=== PATIENT | female | born 1990 ===

== ENCOUNTER 2017-06-24 09:36 | Inpatient (IN) ==
[2017-06-24] MEDS ORDERED: BUTORPHANOL 2 MG/ML VIAL IV PRN (10:10)
[2017-06-24] MEDS ORDERED: ONDANSETRON 4 MG/2 ML VIAL IV PRN (10:10)
[2017-06-24] MEDS ORDERED: MEPERIDINE 50 MG/1 ML VIAL IV PRN (10:10)
--- NOTE | 2017-06-24 10:26 | Ultrasound Report ---
Limited OB ultrasound. Indication: Evaluate presentation. There is a single intrauterine gestation in a cephalic presentation. The placenta is located fundal without evidence of placenta previa. The heart rate is 137 bpm. Impression: Viable fetus in a cephalic presentation. The Ultrasound images were captured and stored. PROCEDURE INTERPRETED AT [facility] DEPARTMENT OF RADIOLOGY Final Report Signed by: Dr. Leah Talavera
[2017-06-24] MEDS ORDERED: OXYTOCIN/LR 20 UNIT/1,000 ML BAG IV SCH (10:30)
[2017-06-24] MEDS ORDERED: hydrOXYzine HCL 25 MG/1 ML VIAL IM PRN (10:43)
[2017-06-24] MEDS ORDERED: CITRIC ACID/SODIUM CITRATE 30 ML UDCUP PO ONE (10:43)
[2017-06-24] MEDS ORDERED: ePHEDrine 50 MG/ML AMP IV PRN (10:43)
[2017-06-24] MEDS ORDERED: diphenhydrAMINE 50 MG/1 ML VIAL IV PRN ×2 (10:43)
[2017-06-24] MEDS ORDERED: fentaNYL 2 MCG/ROPIV 0.2% EPID 150 ML EPIDURAL SCH (10:43)
[2017-06-24] MEDS ORDERED: FAMOTIDINE 20 MG/2 ML VIAL IV ONE (10:43)
[2017-06-24] MEDS ORDERED: LACTATED RINGERS 1,000 ML IV ONE (10:43)
[2017-06-24] MEDS ORDERED: LACTATED RINGERS 500 ML IV ONE (10:43)
[2017-06-24] MEDS ORDERED: PROMETHAZINE 25 MG/1 ML VIAL IM ONE (10:43)
[2017-06-24 10:45] LABS: Basophils % 0.3 % (0.0-0.8); Eosinophils # 0.1 10*3/uL (0.0-0.87); Eosinophils % 1.1 % (0.00-10.9); Hemoglobin 10.7 GM/DL (12.0-16.0); Immature Granulocytes % 0.3 %; Immature Granulocytes Absolute 0.02 #; Lymphocytes # 1.6 10*3/uL (1.4-4.0); Lymphocytes % 25.1 % (21.3-54.2); Mean Corpuscular HGB Conc 31.5 GM/DL (32-36); Mean Corpuscular Hemoglobin 25 PG (27-34); Mean Corpuscular Volume 80.6 FL (87-102); Mean Platelet Volume 10.5 FL (9.6-12.0); Monocytes # 0.5 10*3/uL (0.11-0.8); Monocytes % 7.4 % (1.7-12.7); Neutrophils # 4.2 10*3/uL (1.4-7.4); Neutrophils % 65.8 % (38.7-73.9); Platelet Count 247 T/CUMM (130-400); Red Blood Count 4.22 MC/CUMM (3.8-5.5); White Blood Count 6.3 T/CUMM (4-12)
[2017-06-24] MEDS: LACTATED RINGERS 1,000 ML IV SCH ×2 (11:03→13:28)
[2017-06-24 11:10] LABS: Hypochromasia 1+; Microcytosis 1+; Platelet Estimate Adequate
[2017-06-24 11:13] LABS: Albumin 2.6 G/DL (3.4-5.0); Bilirubin,Total 0.6 MG/DL (0.2-1.0); Calcium 8.7 MG/DL (8.5-10.1); Osmolality,Calculated 275.4 MOS/KG (273-304); Total Protein 6.4 G/DL (6.4-8.3)
[2017-06-24 13:03] LABS: Apearance,Urine CLEAR (Clear); Bilirubin,Urine Negative (Negative); Blood, Urine Negative (Negative); Glucose,Urine (UA) Negative (Negative); Ketones,Urine 20 mg/dL (Negative); Nitrite,Urine Negative (Negative); Protein,Urine Negative; Squamous Epithelial Cell,Urine Occasional /HPF (0-10); Urine Color Straw (Yellow); Urine Specific Gravity 1.004 (1.001-1.035); Urine Urobilinogen < 2.0 EU/DL (0.2-1.0); WBC,Urine <1 /HPF (0-6)
[2017-06-24] MEDS ORDERED: LIDOCAINE 1% 50 ML VIAL ONE (16:34)
[2017-06-24] MEDS ORDERED: miSOPROStol 200 MCG TABLET ONE (16:34)
[2017-06-24] MEDS ORDERED: METHYLERGONOVINE 0.2 MG/1 ML AMP ONE (16:35)
--- NOTE | 2017-06-24 18:27 | OB/GYN History & Physical ---
History of Present Illness Chief complaint: In for elective induction of labor due to term . History of present illness: Ms. Lynn is a 27 year old female who is a 8 para 7 living 7. Her DANTE is 07/01/2017 estimated gestational age of 39 weeks and 1 day. The patient presents for elective induction of labor due to term . The risk and benefits has been thoroughly discussed with this patient and significant other, plan of care has been discussed with Dr. Vila and all parties are in agreement with plan. The patient received her care at the [facility] in the [place] [facility]. She received routine care, her course was uneventful. The patient has had 7 previous vaginal deliveries and the largest weighed 8 pounds and 7 ounces, she reported no complications with any of her pregnancies. labs she is O+, RPR is nonreactive, rubella is immune, hepatitis B negative, HIV negative, GBS culture is negative, review of systems negative. Home Medications Medication Instructions Recorded Confirmed Type Ferrous Sulfate Tab [Feosol 1 tablet PO DAILY 06/24/17 06/24/17 History Original Tab] Multivitamin () [ 1 tablet PO DAILY 06/24/17 06/24/17 History Vitamin] Allergies Allergy/AdvReac Type Severity Reaction Status Date / Time No Known Allergies Allergy Verified 06/05/15 15:28 12 point system: reviewed and no additional remarkable complaints except as stated Medical,Surgical,& Family Hx - Medical History Cardio: History of: Hypertension (HX DURING PREG DR TOOK OFF) HEENT: History of: Eye Problem (CONTACTS) Reproductive: History of: Abnormal Pap Smear No history of: Ectopic , Complication - Surgical History Neurologic Surgeries: Patient denies: Neurologic Surgery Reproductive Surgeries: Patient denies;: Section, Gynecologic Surgery, Tubal Ligation Orthopedic Surgeries: Surgical HX of;: Orthopedic Surgery (Left elbow surgery) - Family History Family History: Reports;: Family Diabetes, Family Heart Disease, Family Hypertension Denies;: Family Anesthesia Reaction, Family Cancer, Family Psychiatric Problems, Family Stroke - Social History Smoking Status: Never smoker Frequency of Alcohol Use: None Type of Drug Use: None Marital Status: Single Lives With:: Significant Other Functional capacity: independent ambulation Exam [employer] - Constitutional Vitals: Vital Signs Temp Pulse Resp BP Pulse Ox 06/24/17 16:00 97.9 F 89 18 104/55 100 08/22/17 14:00 97.6 F 06/24/17 12:00 98.0 F 78 18 126/66 100 06/24/17 10:30 97.4 F L 75 18 120/75 100 General appearance: no acute distress - Antepartum / Post Antepartum Exam Cervix - Dilatation: 5 cm upon admission Effacement: 60% effaced Station: -2 Rupture: Intact Presentation: Vertex Heart Rate: 140s Breast: bilateral: normal Abdomen obstetrics: Present: bowel sounds normal Vagina: Present: normal moisture, discharge Uterus exam: Present: enlarged Anus/Rectum: Present: normal perianal skin - Respiratory Respiratory exam: Present: clear to auscultation bilaterally - Cardiovascular Cardiovascular exam: Present: regular rate and rhythm - GI/Abdominal GI/Abdominal exam: Present: normal bowel sounds, soft - Extremities Exam Extremities exam: Present: normal inspection - Neurological Exam Neurological exam: Present: alert, oriented X3 - Psychiatric Psychiatric exam: Present: normal affect, normal mood - Skin Skin exam: Present: normal color, warm Assessment and Plan (1) with 39 completed weeks gestation Status: Acute Assessment and plan: Admit IV fluids IV Pitocin per protocol Artificial rupture membranes when appropriate Internal monitors if indicated Epidural anesthesia if desired Anticipate Current Visit: Yes (2) Grand multipara Status: Acute Assessment and plan: Same as above Current Visit: Yes Results - Labs CBC & BMP: 06/24/17 10:25 06/24/17 10:25
--- NOTE | 2017-06-24 18:32 | Event Note ---
HPI: Ms. Lynn is a 27-year-old female who presented to the labor department for elective induction of labor due to term . The risk and benefits were thoroughly discussed with this patient in Dr. Vila, all parties were in agreement plan. Stage I: The patient was admitted and received IV fluids. She also received artificial rupture membranes with clear fluid noted. The patient progressed in labor with a CAT 1 tracing. She received an epidural for pain control. She had an uneventful course of labor without incident. Stage II: The patient was complete and was instructed to push. She pushed for approximately 5 minutes after which time the infant's head was delivered. The mouth and nose were suctioned on the perineum. The remainder the infant was delivered at 1748, a viable male infant was noted. Apgars were 8 at 1 minute and 9 at 5 minutes. weight was 7 pounds and 7 ounces. A cord pH was obtained and sent to the lab. Stage III: A spontaneous delivery of a [place] placenta with a three-vessel cord noted. The placenta was further examined appeared to be grossly intact. The vagina cervix was inspected with no tears or lacerations noted. Estimated blood loss is proximal 150 cc. At the time of dictation mother and baby are both in stable condition.
[2017-06-24] MEDS ORDERED: ACETAMINOPHEN/CODEINE 300-30 MG TABLET PO PRN (18:37)
[2017-06-24 18:58] LABS: Cord Arterial Blood HCO3 25.9 MMOL/L
[2017-06-24 19:00] LABS: Cord Venous Blood HCO3 23.2 MMOL/L; Cord Venous Blood PO2 41.2
[2017-06-24] MEDS ORDERED: MEASLES/MUMPS/RUBELLA VACCINE 0.5 ML VIAL SUBCUT ONE (20:15)
[2017-06-24] MEDS ORDERED: BENZOCAINE 20%/MENTHOL 0.5% SPRAY 56 GM CAN TOP PRN (20:15)
[2017-06-24] MEDS ORDERED: ACETAMINOPHEN 325 MG TABLET PO PRN (20:15)
[2017-06-24] MEDS ORDERED: DIPH/TET/ACEL PERT BOOSTER VACCINE 0.5 ML VIAL IM ONE (20:15)
[2017-06-24] MEDS ORDERED: BISACODYL 10 MG SUPP RECTAL PRN (20:15)
[2017-06-24] MEDS ORDERED: WITCH HAZEL PADS 100/JAR TOP PRN (20:15)
[2017-06-24] MEDS ORDERED: HYDROCORTISONE 2.5% RECTAL CREAM 30 GM TUBE TOP PRN (20:15)
[2017-06-24] MEDS ORDERED: RHO(D) IMMUNE GLOBULIN 300 MCG SYRINGE IM ONE (20:15)
[2017-06-24] MEDS ORDERED: oxyCODONE/ACETAMINOPHEN 5-325 MG TABLET PO PRN ×2 (20:15)
[2017-06-24] MEDS ORDERED: LANOLIN 50% CREAM 0.3 OZ TUBE TOP PRN (20:15)
[2017-06-24] MEDS: DOCUSATE SODIUM 100 MG CAPSULE PO SCH (21:20)
[2017-06-25] MEDS: IBUPROFEN 800 MG TABLET PO PRN ×3 (01:19→22:23)
[2017-06-25 06:47] LABS: Basophils % 0.2 % (0.0-0.8); Eosinophils # 0.1 10*3/uL (0.0-0.87); Eosinophils % 1.3 % (0.00-10.9); Hematocrit 31.5 VOL% (35.7-47.0); Immature Granulocytes % 0.4 %; Immature Granulocytes Absolute 0.04 #; Lymphocytes # 2.1 10*3/uL (1.4-4.0); Mean Corpuscular HGB Conc 31.7 GM/DL (32-36); Mean Corpuscular Hemoglobin 26 PG (27-34); Mean Platelet Volume 10.9 FL (9.6-12.0); Monocytes # 0.6 10*3/uL (0.11-0.8); Monocytes % 6.6 % (1.7-12.7); Neutrophils # 6.2 10*3/uL (1.4-7.4); Neutrophils % 68.5 % (38.7-73.9); Platelet Count 234 T/CUMM (130-400); Red Blood Count 3.89 MC/CUMM (3.8-5.5)
[2017-06-25 07:18] LABS: Hypochromasia 1+
[2017-06-25 07:19] LABS: Microcytosis 1+; Ovalocytes Slight; Platelet Estimate Normal
[2017-06-25] MEDS: DOCUSATE SODIUM 100 MG CAPSULE PO SCH ×2 (08:21→20:45)
--- NOTE | 2017-06-25 10:04 | Progress Note ---
Family Medicine PN Sub Interval history: day #1 Status post vaginal Lungs are clear ,cardiac exam benign, uterus is nice and firm and nontender. Extremities well with no limits and neurologic grossly intact Assessment and plan Possible discharge in a.m. we will continue with present therapy increase ambulation as well. Exam (Progress Note) - Constitutional Vitals: Period Temp Pulse Resp BP Sys/[place] Pulse Ox Last 24 Hr 97.4 F-98.7 F 69-89 18-20 104-127/50-75 99-100 Results - Labs CBC & BMP: 06/25/17 06:05 06/24/17 10:25 Quality Measures - VTE Contraindication to Pharmacological VTE Prophylaxis: Clinical assessment deems Pt at low risk, no prophalaxis needed
[2017-06-26 07:44] VITALS: BP 113/68
[2017-06-26] MEDS: DOCUSATE SODIUM 100 MG CAPSULE PO SCH (08:37)
--- NOTE | 2017-06-26 09:20 | Discharge Summary ---
Hospital Course - Hospital Course Hospital Course: Ms. Lynn presented to the labor department for elective induction of labor due to term . She subsequently delivered a viable with no complications. She has followed a normal course and she has done well. Her bleeding is minimal with no odor. She is voiding without difficulty. Her vital signs stable as well as her lab. Her perineum is intact with no edema. Contraception options has been discussed with this patient and she will decide on a method at her visit. She will be discharged home with prescriptions for pain and a follow-up appointment in our office. Diagnosis - Discharge Diagnosis (1) with 39 completed weeks gestation Status: Acute (2) Grand multipara Status: Acute Specialty Discharge - Follow Up or Referrals Follow up with: Kristin Vila MD [Physician] - (Follow-up in 6 weeks.) Discharge Plan - Discharge Data Disposition: Disch To Home/Self Care Condition at Discharge: Stable Discharge Diet: advance to your usual diet, regular diet Activity: resume usual activities as tolerated Hygiene: no restrictions Weight Bearing at Discharge: weight bear as tolerated Driving: no restrictions Contact your physician if you experience:: fever over 101, pain uncontrolled by pain medications - Discharge Medications New Acetamin/Codeine 300-30 Tab [Tylenol/Codeine #3] 2 tablet PO Q4H PRN #30 tablet PRN Reason: Pain Mild (1-3) Ibuprofen Tab [Motrin Tab] 800 mg PO Q6H PRN #30 tablet PRN Reason: Pain Moderate (4-7) No Action Multivitamin () [ Vitamin] 1 tablet PO DAILY Ferrous Sulfate Tab [Feosol Original Tab] 1 tablet PO DAILY - Follow Up or Referral - Forms/Instructions Exam - Constitutional Vitals: Period Temp Pulse Resp BP Sys/[place] Pulse Ox Last 24 Hr 97 F-98.3 F 66-98 18-20 105-124/56-74 98-99 General appearance: no acute distress - Respiratory Respiratory exam: Present: clear to auscultation bilaterally - Cardiovascular Cardiovascular exam: Present: regular rate and rhythm - GI/Abdominal GI/Abdominal exam: Present: normal bowel sounds, soft - Extremities Exam Extremities exam: Present: normal inspection - Back Exam Back exam: Present: normal inspection - Neurological Exam Neurological exam: Present: alert, oriented X3 - Psychiatric Psychiatric exam: Present: normal affect, normal mood - Skin Skin exam: Present: normal color, warm Discharge Results Procedures and tests throughout hospitalization: Pending Orders 06/24/17 12:40 Urinalysis Stat DS: Provider Date of admission: 06/24/17 10:11 Primary care physician: Norberto Gallego MD Attending physician on admission: Kristin Vila MD Consults: 06/24/17 10:11 Consult to Anesthesiology [CONS] Routine Consulting Provider: Reason for Anesthesiology: Epidural Consult Comment: Epidural for pain managment 06/24/17 20:15 Consult to Denial Management Representative [CONS] Routine Consult Denial Management Representative: Breast Feeding Discharging clinician: Maria Dolores Melchor CNM Expected date of discharge: 06/26/17
== END 2017-06-26 13:00 | disposition home or self-care (01) | DRG 560 ==
LOC: N.LDOUT 09:36 → N.LD 09:39 → N.OB 20:00
PROVIDERS: ADMIT Obstetrics & Gynecology; ATTEND Obstetrics & Gynecology

== ENCOUNTER 2018-07-09 09:04 | Inpatient (IN) ==
[2018-07-09] MEDS ORDERED: OXYTOCIN/LR 20 UNIT/1,000 ML BAG IV ONE ×2 (09:30→09:38)
[2018-07-09] MEDS ORDERED: miSOPROStol 200 MCG TABLET ONE (09:30)
[2018-07-09] MEDS ORDERED: LIDOCAINE 1% 50 ML VIAL ONE (09:30)
[2018-07-09] MEDS ORDERED: ONDANSETRON 4 MG/2 ML VIAL IV PRN (09:32)
[2018-07-09] MEDS ORDERED: AMPICILLIN INJ 2,000 MG in SODIUM CHLORIDE 0.9% 100 ML IV ONE (09:38)
[2018-07-09] MEDS ORDERED: AMPICILLIN 2,000 MG VIAL ONE (09:40)
[2018-07-09] MEDS ORDERED: SODIUM CHLORIDE 0.9% 100 ML IV ONE (09:40)
[2018-07-09] MEDS ORDERED: BUTORPHANOL 2 MG/ML VIAL ONE (09:45)
[2018-07-09] MEDS ORDERED: BUTORPHANOL 2 MG/ML VIAL IV ONE (09:49)
[2018-07-09] MEDS ORDERED: ONDANSETRON 4 MG/2 ML VIAL IM ONE (09:49)
[2018-07-09 09:58] LABS: Basophils % 0.4 % (0.0-0.8); Eosinophils # 0.1 10*3/uL (0.0-0.87); Eosinophils % 0.8 % (0.00-10.9); Hematocrit 30.4 VOL% (35.7-47.0); Hemoglobin 9.4 GM/DL (12.0-16.0); Immature Granulocytes % 0.6 %; Immature Granulocytes Absolute 0.06 #; Lymphocytes # 2.9 10*3/uL (1.4-4.0); Lymphocytes % 27.8 % (21.3-54.2); Mean Corpuscular HGB Conc 30.9 GM/DL (32-36); Mean Corpuscular Hemoglobin 24 PG (27-34); Monocytes # 0.5 10*3/uL (0.11-0.8); Monocytes % 5.1 % (1.7-12.7); Neutrophils # 6.7 10*3/uL (1.4-7.4); Neutrophils % 65.3 % (38.7-73.9); Platelet Count 254 T/CUMM (130-400); Red Blood Count 3.95 MC/CUMM (3.8-5.5); Red Cell Distribution Width 16.8 % (9.3-17.3); White Blood Count 10.3 T/CUMM (4-12)
[2018-07-09] MEDS ORDERED: LACTATED RINGERS 1,000 ML IV SCH (10:00)
[2018-07-09] MEDS ORDERED: OXYTOCIN/LR 20 UNIT/1,000 ML BAG IV SCH (10:00)
[2018-07-09 10:40] LABS: Albumin 2.4 G/DL (3.4-5.0); Bilirubin,Total 0.7 MG/DL (0.2-1.0); Calcium 8.6 MG/DL (8.5-10.1); Osmolality,Calculated 275.4 MOS/KG (273-304); Potassium 3.6 MMOL/L (3.5-5.1); Total Protein 7.3 G/DL (6.4-8.3)
[2018-07-09 11:08] LABS: Apearance,Urine CLEAR (Clear); Bacteria,Urine Occasional /HPF (Few); Bilirubin,Urine Negative (Negative); Blood, Urine Small mg/dL (Negative); Glucose,Urine (UA) Negative (Negative); Ketones,Urine Negative (Negative); Mucus,Urine Occasional /LPF (Occasional); Nitrite,Urine Negative (Negative); Protein,Urine Negative; RBC,Urine 16 /HPF (0-4); Squamous Epithelial Cell,Urine Occasional /HPF (0-10); Urine Color Yellow (Yellow); Urine Specific Gravity 1.012 (1.001-1.035); WBC,Urine <1 /HPF (0-6)
[2018-07-09] MEDS ORDERED: MEASLES/MUMPS/RUBELLA VACCINE 0.5 ML VIAL SUBCUT ONE (15:46)
[2018-07-09] MEDS ORDERED: BENZOCAINE 20%/MENTHOL 0.5% SPRAY 56 GM CAN TOP PRN (15:46)
[2018-07-09] MEDS ORDERED: oxyCODONE/ACETAMINOPHEN 5-325 MG TABLET PO PRN (15:46)
[2018-07-09] MEDS ORDERED: RHO(D) IMMUNE GLOBULIN 300 MCG SYRINGE IM ONE (15:46)
[2018-07-09] MEDS ORDERED: ACETAMINOPHEN 325 MG TABLET PO PRN (15:46)
[2018-07-09] MEDS ORDERED: DIPH/TET/ACEL PERT BOOSTER VACCINE 0.5 ML VIAL IM ONE (15:46)
[2018-07-09] MEDS ORDERED: HYDROCORTISONE 2.5% RECTAL CREAM 30 GM TUBE TOP PRN (15:46)
[2018-07-09] MEDS ORDERED: WITCH HAZEL PADS 100/JAR TOP PRN (15:46)
[2018-07-09] MEDS ORDERED: BISACODYL 10 MG SUPP RECTAL PRN (15:46)
[2018-07-09] MEDS ORDERED: LANOLIN 50% CREAM 0.3 OZ TUBE TOP PRN (15:46)
[2018-07-09] MEDS ORDERED: ACETAMINOPHEN/CODEINE 300-30 MG TABLET PO PRN (15:46)
[2018-07-09] MEDS: IBUPROFEN 800 MG TABLET PO PRN (16:40)
[2018-07-09] MEDS: DOCUSATE SODIUM 100 MG CAPSULE PO SCH (20:42)
[2018-07-10 06:02] LABS: Basophils % 0.3 % (0.0-0.8); Eosinophils # 0.1 10*3/uL (0.0-0.87); Eosinophils % 1.8 % (0.00-10.9); Hematocrit 26.6 VOL% (35.7-47.0); Immature Granulocytes % 0.5 %; Immature Granulocytes Absolute 0.04 #; Lymphocytes # 2.4 10*3/uL (1.4-4.0); Lymphocytes % 30.7 % (21.3-54.2); Mean Corpuscular HGB Conc 30.1 GM/DL (32-36); Mean Corpuscular Hemoglobin 24 PG (27-34); Mean Corpuscular Volume 79.4 FL (87-102); Mean Platelet Volume 12.2 FL (9.6-12.0); Monocytes # 0.5 10*3/uL (0.11-0.8); Neutrophils # 4.7 10*3/uL (1.4-7.4); Neutrophils % 60.7 % (38.7-73.9); Platelet Count 227 T/CUMM (130-400); Red Blood Count 3.35 MC/CUMM (3.8-5.5); Red Cell Distribution Width 16.9 % (9.3-17.3); White Blood Count 7.7 T/CUMM (4-12)
[2018-07-10] MEDS: DOCUSATE SODIUM 100 MG CAPSULE PO SCH ×2 (08:57→20:15)
[2018-07-10] MEDS: FERROUS SULFATE 325 MG TABLET PO SCH ×2 (08:57→20:15)
[2018-07-10] MEDS: IBUPROFEN 800 MG TABLET PO PRN (17:43)
[2018-07-10] MEDS: oxyCODONE/ACETAMINOPHEN 5-325 MG TABLET PO PRN (17:45)
[2018-07-11] MEDS: DOCUSATE SODIUM 100 MG CAPSULE PO SCH (09:39)
[2018-07-11] MEDS: FERROUS SULFATE 325 MG TABLET PO SCH (09:39)
[2018-07-11] MEDS: oxyCODONE/ACETAMINOPHEN 5-325 MG TABLET PO PRN (15:30)
[2018-07-11 15:33] VITALS: BP 119/74
[2018-07-11] MEDS: IBUPROFEN 800 MG TABLET PO PRN (15:33)
== END 2018-07-11 19:10 | disposition home or self-care (01) | DRG 560 ==
LOC: N.LDOUT 09:04 → N.LD 09:05 → N.OB 11:51
PROVIDERS: ADMIT Obstetrics & Gynecology; ATTEND Obstetrics & Gynecology

== ENCOUNTER 2019-07-10 12:56 | Inpatient (IN) ==
[2019-07-10] MEDS ORDERED: BUTORPHANOL 2 MG/ML VIAL IV PRN (13:15)
[2019-07-10] MEDS ORDERED: ONDANSETRON 4 MG/2 ML VIAL IV PRN ×2 (13:15→15:40)
[2019-07-10] MEDS ORDERED: MEPERIDINE 50 MG/1 ML VIAL IV PRN (13:15)
[2019-07-10] MEDS ORDERED: FAMOTIDINE 20 MG/2 ML VIAL IV ONE (13:25)
[2019-07-10] MEDS ORDERED: hydrOXYzine HCL 25 MG/1 ML VIAL IM PRN (13:25)
[2019-07-10] MEDS ORDERED: ONDANSETRON 4 MG/2 ML VIAL IV ONE (13:25)
[2019-07-10] MEDS ORDERED: PROMETHAZINE 25 MG/1 ML VIAL IM ONE (13:25)
[2019-07-10] MEDS ORDERED: CITRIC ACID/SODIUM CITRATE 30 ML UDCUP PO ONE (13:25)
[2019-07-10] MEDS ORDERED: diphenhydrAMINE 50 MG/1 ML VIAL IV PRN ×2 (13:25)
[2019-07-10] MEDS ORDERED: LACTATED RINGERS 1,000 ML IV ONE (13:25)
[2019-07-10] MEDS ORDERED: NALOXONE 0.4 MG/ML VIAL IV PRN (13:25)
[2019-07-10] MEDS ORDERED: ePHEDrine 50 MG/ML AMP IV PRN (13:25)
[2019-07-10] MEDS ORDERED: LACTATED RINGERS 1,000 ML IV SCH (13:30)
[2019-07-10] MEDS ORDERED: OXYTOCIN/LR 20 UNIT/1,000 ML BAG IV SCH (13:30)
[2019-07-10] MEDS ORDERED: fentaNYL 2 MCG/ROPIV 0.2% EPID 100 ML EPIDURAL SCH (13:30)
[2019-07-10] MEDS ORDERED: AMPICILLIN INJ 2,000 MG in SODIUM CHLORIDE 0.9% 100 ML IV ONE (13:34)
[2019-07-10] MEDS ORDERED: AMPICILLIN 2,000 MG VIAL ONE (13:36)
[2019-07-10 13:42] LABS: Basophils % 0.1 % (0.0-0.8); Eosinophils % 0.4 % (0.00-10.9); Hematocrit 28.5 VOL% (35.7-47.0); Hemoglobin 8.2 GM/DL (12.0-16.0); Immature Granulocytes % 0.6 %; Immature Granulocytes Absolute 0.05 #; Lymphocytes # 1.6 10*3/uL (1.4-4.0); Lymphocytes % 19.8 % (21.3-54.2); Mean Corpuscular HGB Conc 28.8 GM/DL (32-36); Mean Corpuscular Volume 76.8 FL (87-102); Mean Platelet Volume 11.1 FL (9.6-12.0); Monocytes % 6.2 % (1.7-12.7); Neutrophils % 72.9 % (38.7-73.9); Platelet Count 252 T/CUMM (130-400); Red Blood Count 3.71 MC/CUMM (3.8-5.5); Red Cell Distribution Width 19.8 % (9.3-17.3); White Blood Count 8.2 T/CUMM (4-12)
[2019-07-10 14:01] LABS: Albumin 2.5 G/DL (3.4-5.0); Bilirubin,Total 0.5 MG/DL (0.2-1.0); Calcium 8.5 MG/DL (8.5-10.1); Osmolality,Calculated 276.3 MOS/KG (273-304); Total Protein 6.7 G/DL (6.4-8.3)
[2019-07-10 14:06] LABS: Anisocytosis 1+; Platelet Estimate Adequate; Poikilocytosis 1+; Polychromasia Few
[2019-07-10] MEDS ORDERED: OXYTOCIN/LR 30 UNIT/1,000 ML BAG IV ONE (14:47)
[2019-07-10 14:48] LABS: HIV Antigen/Antibody Result Nonreactive (Nonreactive); Hepatitis B Surface Ag Quant < 0.10 Index; Hepatitis B Surface Ag Result Negative (Negative); Rubella Antibody IgG 11.4 IU/ML
[2019-07-10] MEDS ORDERED: miSOPROStol 200 MCG TABLET ONE (15:00)
[2019-07-10] MEDS ORDERED: METHYLERGONOVINE 0.2 MG/1 ML AMP ONE (15:00)
[2019-07-10] MEDS ORDERED: CARBOPROST TROMETHAMINE 250 MCG/ML AMP IM ONE (15:00)
[2019-07-10] MEDS ORDERED: BENZOCAINE 20%/MENTHOL 0.5% SPRAY 56 GM CAN TOP PRN (15:40)
[2019-07-10] MEDS ORDERED: oxyCODONE/ACETAMINOPHEN 5-325 MG TABLET PO PRN ×2 (15:40)
[2019-07-10] MEDS ORDERED: ACETAMINOPHEN 325 MG TABLET PO PRN (15:40)
[2019-07-10] MEDS ORDERED: DIPH/TET/ACEL PERT BOOSTER VACCINE 0.5 ML VIAL IM ONE (15:40)
[2019-07-10] MEDS ORDERED: RHO(D) IMMUNE GLOBULIN 300 MCG SYRINGE IM ONE (15:40)
[2019-07-10] MEDS ORDERED: LANOLIN 50% CREAM 0.3 OZ TUBE TOP PRN (15:40)
[2019-07-10] MEDS ORDERED: MEASLES/MUMPS/RUBELLA VACCINE 0.5 ML VIAL SUBCUT ONE (15:40)
[2019-07-10] MEDS ORDERED: OXYTOCIN/LR 20 UNIT/1,000 ML BAG IV ONE (15:40)
[2019-07-10] MEDS ORDERED: HYDROCORTISONE 2.5% RECTAL CREAM 30 GM TUBE TOP PRN (15:40)
[2019-07-10] MEDS ORDERED: WITCH HAZEL PADS 100/JAR TOP PRN (15:40)
[2019-07-10] MEDS ORDERED: BISACODYL 10 MG SUPP RECTAL PRN (15:40)
[2019-07-10 15:46] LABS: Cord Venous Blood HCO3 22.4 MMOL/L; Cord Venous Blood PCO2 36.9 MMHG
[2019-07-10] MEDS: FERROUS SULFATE 325 MG TABLET PO SCH (20:22)
[2019-07-10] MEDS: DOCUSATE SODIUM 100 MG CAPSULE PO SCH (20:22)
[2019-07-10] MEDS: IBUPROFEN 800 MG TABLET PO PRN (20:25)
[2019-07-11 05:58] LABS: Basophils % 0.4 % (0.0-0.8); Eosinophils # 0.1 10*3/uL (0.0-0.87); Eosinophils % 1.3 % (0.00-10.9); Hematocrit 22.6 VOL% (35.7-47.0); Immature Granulocytes % 0.3 %; Immature Granulocytes Absolute 0.02 #; Lymphocytes # 1.7 10*3/uL (1.4-4.0); Lymphocytes % 25.3 % (21.3-54.2); Mean Corpuscular HGB Conc 28.8 GM/DL (32-36); Mean Corpuscular Volume 77.4 FL (87-102); Neutrophils % 65.7 % (38.7-73.9); Red Cell Distribution Width 19.5 % (9.3-17.3); White Blood Count 6.7 T/CUMM (4-12)
[2019-07-11 06:02] LABS: Hemoglobin 6.5 GM/DL (12.0-16.0); Platelet Count 186 T/CUMM (130-400); Red Blood Count 2.92 MC/CUMM (3.8-5.5)
[2019-07-11] MEDS: FERROUS SULFATE 325 MG TABLET PO SCH ×2 (09:41→21:04)
[2019-07-11] MEDS: IBUPROFEN 800 MG TABLET PO PRN ×2 (09:41→23:07)
[2019-07-11] MEDS: DOCUSATE SODIUM 100 MG CAPSULE PO SCH ×2 (09:41→21:04)
[2019-07-11] MEDS ORDERED: SODIUM CHLORIDE 0.9% 1,000 ML IV PRN (09:50)
[2019-07-11 16:49] LABS: Hematocrit 29.3 VOL% (35.7-47.0); Hemoglobin 8.6 GM/DL (12.0-16.0)
[2019-07-12 07:49] VITALS: BP 128/81
[2019-07-12] MEDS: DOCUSATE SODIUM 100 MG CAPSULE PO SCH (08:47)
[2019-07-12] MEDS: FERROUS SULFATE 325 MG TABLET PO SCH (08:47)
[2019-07-13 18:20] LABS: Antinuclear Ab, S 0.2 U; Cyclic Citrull Peptide Ab Mayo < 15.6 U
== END 2019-07-12 13:30 | disposition home or self-care (01) | DRG 807 ==
LOC: N.LDOUT 12:56 → N.LD 12:59 → N.OB 17:26
PROVIDERS: ADMIT Obstetrics & Gynecology; ATTEND Obstetrics & Gynecology

== ENCOUNTER 2020-11-22 09:46 | Inpatient (IN) ==
[2020-11-22] MEDS ORDERED: BUTORPHANOL 2 MG/ML VIAL IV PRN (10:21)
[2020-11-22] MEDS ORDERED: ONDANSETRON 4 MG/2 ML VIAL IV PRN (10:21)
[2020-11-22] MEDS ORDERED: BUTORPHANOL 1 MG/ML VIAL IV PRN (10:21)
[2020-11-22] MEDS: LACTATED RINGERS 1,000 ML IV PRN ×2 (11:07→14:23)
[2020-11-22] MEDS: OXYTOCIN/LR 20 UNIT/1,000 ML BAG IV PRN ×2 (11:07→20:45)
[2020-11-22 11:10] LABS: Albumin 2.6 G/DL (3.4-5.0); Bilirubin,Total 0.5 MG/DL (0.2-1.0); Calcium 8.4 MG/DL (8.5-10.1); Osmolality,Calculated 270.7 MOS/KG (273-304); Total Protein 7.2 G/DL (6.4-8.3); Uric Acid 2.8 MG/DL (2.6-6.0)
[2020-11-22 11:11] LABS: Basophils % 0.5 % (0.0-0.8); Eosinophils # 0.3 10*3/uL (0.0-0.87); Eosinophils % 3.6 % (0.00-10.9); Hematocrit 31.6 VOL% (35.7-47.0); Hemoglobin 9.5 GM/DL (12.0-16.0); Immature Granulocytes % 0.4 %; Immature Granulocytes Absolute 0.03 #; Lymphocytes # 1.8 10*3/uL (1.4-4.0); Lymphocytes % 22.1 % (21.3-54.2); Mean Corpuscular HGB Conc 30.1 GM/DL (32-36); Mean Corpuscular Volume 80.4 FL (87-102); Mean Platelet Volume 11.2 FL (9.6-12.0); Monocytes % 5.4 % (1.7-12.7); Platelet Count 273 T/CUMM (130-400); Red Blood Count 3.93 MC/CUMM (3.8-5.5); Red Cell Distribution Width 18.7 % (9.3-17.3)
[2020-11-22] MEDS ORDERED: diphenhydrAMINE 50 MG/1 ML VIAL IV PRN ×2 (13:52)
[2020-11-22] MEDS ORDERED: ePHEDrine 50 MG/ML VIAL IV PRN (13:52)
[2020-11-22] MEDS ORDERED: NALOXONE 0.4 MG/ML VIAL IV PRN (13:52)
[2020-11-22] MEDS ORDERED: CITRIC ACID/SODIUM CITRATE 30 ML UDCUP PO ONE (13:52)
[2020-11-22] MEDS ORDERED: FAMOTIDINE 20 MG/2 ML VIAL IV ONE (13:52)
[2020-11-22] MEDS ORDERED: PROMETHAZINE 25 MG/1 ML VIAL IM PRN (13:52)
[2020-11-22] MEDS ORDERED: hydrOXYzine HCL 25 MG/1 ML VIAL IM PRN (13:52)
[2020-11-22] MEDS ORDERED: fentaNYL 2 MCG/ROPIV 0.2% EPID 100 ML EPIDURAL SCH (14:00)
[2020-11-22 15:45] LABS: Bacteria,Urine Occasional /HPF (Few); Bilirubin,Urine Negative (Negative); Blood, Urine Negative (Negative); Glucose,Urine (UA) Negative (Negative); Hyaline Casts,Urine 1 /LPF (0-3); Ketones,Urine 20 mg/dL (Negative); Mucus,Urine Occasional /LPF (Occasional); Nitrite,Urine Negative (Negative); Protein,Urine Negative; RBC,Urine 1 /HPF (0-4); Squamous Epithelial Cell,Urine Occasional /HPF (0-10); Urine Appearance CLEAR (Clear); Urine Color Yellow (Yellow); WBC,Urine <1 /HPF (0-6)
[2020-11-22] MEDS ORDERED: miSOPROStoL 200 MCG TABLET ONE (16:19)
[2020-11-22] MEDS ORDERED: METHYLERGONOVINE 0.2 MG/1 ML AMP ONE (16:20)
[2020-11-22] MEDS ORDERED: CARBOPROST TROMETHAMINE 250 MCG/ML AMP IM ONE (16:20)
[2020-11-22] MEDS ORDERED: miSOPROStoL 200 MCG TABLET VAG ONE (17:10)
[2020-11-22 17:16] LABS: Cord Arterial Blood HCO3 21.1 MMOL/L
[2020-11-22 17:19] LABS: Cord Venous Blood HCO3 22.4 MMOL/L; Cord Venous Blood PCO2 40.9 MMHG; Cord Venous Blood PO2 32.8
[2020-11-22] MEDS ORDERED: DIPH/TET/ACEL PERT BOOSTER VACCINE 0.5 ML VIAL IM ONE (21:10)
[2020-11-22] MEDS ORDERED: OXYTOCIN/LR 20 UNIT/1,000 ML BAG IV ONE (21:10)
[2020-11-22] MEDS ORDERED: LANOLIN 50% CREAM 0.3 OZ TUBE TOP PRN (21:10)
[2020-11-22] MEDS ORDERED: MEASLES/MUMPS/RUBELLA VACCINE 0.5 ML VIAL SUBCUT ONE (21:10)
[2020-11-22] MEDS ORDERED: oxyCODONE/ACETAMINOPHEN 5-325 MG TABLET PO PRN ×2 (21:10)
[2020-11-22] MEDS ORDERED: WITCH HAZEL PADS 100/JAR TOP PRN (21:10)
[2020-11-22] MEDS ORDERED: BENZOCAINE 20%/MENTHOL 0.5% SPRAY 56 GM CAN TOP PRN (21:10)
[2020-11-22] MEDS ORDERED: HYDROCORTISONE 2.5% RECTAL CREAM 30 GM TUBE TOP PRN (21:10)
[2020-11-22] MEDS ORDERED: ACETAMINOPHEN 325 MG TABLET PO PRN (21:10)
[2020-11-22] MEDS ORDERED: RHO(D) IMMUNE GLOBULIN 300 MCG SYRINGE IM ONE (21:10)
[2020-11-22] MEDS ORDERED: BISACODYL 10 MG SUPP RECTAL PRN (21:10)
[2020-11-22] MEDS: DOCUSATE SODIUM 100 MG CAPSULE PO SCH (21:24)
[2020-11-22] MEDS: IBUPROFEN 800 MG TABLET PO PRN (22:48)
[2020-11-23 04:56] LABS: Basophils % 0.4 % (0.0-0.8); Eosinophils # 0.3 10*3/uL (0.0-0.87); Eosinophils % 3.3 % (0.00-10.9); Hematocrit 26.7 VOL% (35.7-47.0); Hemoglobin 7.9 GM/DL (12.0-16.0); Immature Granulocytes % 0.4 %; Immature Granulocytes Absolute 0.04 #; Lymphocytes # 2.2 10*3/uL (1.4-4.0); Lymphocytes % 20.7 % (21.3-54.2); Mean Corpuscular HGB Conc 29.6 GM/DL (32-36); Mean Corpuscular Volume 80.7 FL (87-102); Mean Platelet Volume 11.1 FL (9.6-12.0); Monocytes % 4.9 % (1.7-12.7); Neutrophils % 70.3 % (38.7-73.9); Platelet Count 263 T/CUMM (130-400); Red Blood Count 3.31 MC/CUMM (3.8-5.5); Red Cell Distribution Width 18.6 % (9.3-17.3); White Blood Count 10.4 T/CUMM (4-12)
[2020-11-23] MEDS ORDERED: SODIUM CHLORIDE 0.9% 1,000 ML IV PRN (09:26)
[2020-11-23] MEDS: POTASSIUM CHLORIDE 20 MEQ TABLET PO PRN ×3 (09:41→17:06)
[2020-11-23] MEDS: DOCUSATE SODIUM 100 MG CAPSULE PO SCH ×2 (09:41→20:42)
[2020-11-24 04:48] LABS: Hematocrit 30.7 VOL% (35.7-47.0)
[2020-11-24] MEDS: IBUPROFEN 800 MG TABLET PO PRN (08:10)
[2020-11-24 09:29] VITALS: BP 136/73
[2020-11-24] MEDS: DOCUSATE SODIUM 100 MG CAPSULE PO SCH (16:46)
== END 2020-11-24 14:05 | disposition home or self-care (01) | DRG 560 ==
LOC: N.LD 09:46 → N.OB 21:10
PROVIDERS: ADMIT Obstetrics & Gynecology; ATTEND Obstetrics & Gynecology